=== PATIENT | female | born 1975 | race Caucasian/White ===

== ENCOUNTER 2018-10-10 11:57 | Emergency (ER) | payer OTHER ==
[~2018-10-10] VITALS: Ht 177.8 cm; Wt 74.0 kg
[2018-10-10 12:05] VITALS: Ht 177.8 cm; Wt 74.0 kg
[2018-10-10] MEDS ORDERED: CEPH-443 PO (12:54)
[2018-10-10] MEDS ORDERED: MUPI22OI2 TOP (12:54)
--- NOTE | 2018-10-10 12:57 | ERD ---
ER Documentation Chief Complaint Chief Complaint LEFT BUTTOCK BURN FROM HOT TEA X 5 DAYS AGO, BLISTER PRESENT HPI This 43-year-old female sustained a burn on her left buttock after spilling tea on herself 5 days ago. She was waiting for it to heal but it appears more red. Tetanus is up-to-date. She has minimal discharge. She denies fevers, vomiting, additional symptoms. ROS All systems reviewed and are negative except as per history of present illness. Medications Home Meds Active Scripts Mupirocin* (Bactroban*) 2% -22 Gram Oint...g., 1 APPLIC TOP BID for 7 Days, EA Prov:JV MAYER MD 10/10/18 Cephalexin* (Keflex*) 500 Mg Capsule, 500 MG PO QID for 7 Days, CAP Prov:JV MAYER MD 10/10/18 Allergies Allergies: Coded Allergies: No Known Allergy (Unverified , 10/10/18) PMhx/Soc Medical and Surgical Hx: pt denies Medical Hx, pt denies Surgical Hx Hx Alcohol Use: No Hx Substance Use: No Hx Tobacco Use: No Smoking Status: Never smoker FmHx Family History: No diabetes, No coronary disease, No other Physical Exam Vitals Vital Signs Date Temp Pulse Resp B/P (MAP) Pulse Ox O2 O2 Flow FiO2 Time Delivery Rate 10/10/18 99.0 72 16 136/69 99 12:05 (91) Physical Exam Const: No acute distress Head: Atraumatic Eyes: Normal Conjunctiva ENT: Normal External Ears, Nose and Mouth. Neck: Full range of motion. No meningismus. Resp: Clear to auscultation bilaterally Cardio: Regular rate and rhythm, no murmurs Abd: Soft, non tender, non distended. Normal bowel sounds Skin: No petechiae or rashes. There is a healing split thickness burn on the left buttock approximately 2 cm x 6 cm. There is some surrounding redness and tenderness. There is no induration, streaking, fluctuance, active discharge. Back: No midline or flank tenderness Ext: No cyanosis, or edema Neur: Awake and alert Psych: Normal Mood and Affect Results 24 hrs Current Medications Medications Dose Sig/Larry Start Time Status Last (Trade) Ordered Route PRN Stop Time Admin Dose Reason Admin Cephalexin 500 mg ONCE ONCE 10/10/18 10/10/18 (Keflex) PO 13:00 12:47 10/10/18 13:01 Procedures/MDM Patient presents with a 5-day-old split thickness burn on the left buttock with signs of early infection. Is no signs of necrotizing fasciitis, sepsis, additional complications. Will treat with Keflex, Bactroban, instructions on wound care, scar prevention, primary care follow-up and return precautions. The patient was stable with no new complaints during the ER course. Clinically, there is no current evidence to suggest meningitis, sepsis, acute abdomen, pneumonia, stroke, acute coronary syndrome, pulmonary embolism, aortic dissection or any other emergent condition appearing to require further evaluation or hospitalization. Patient counseled regarding my diagnostic impression and care plan. Prior to discharge all questions answered. Pt agrees with treatment plan and understands strict return precautions. Pt is instructed to follow up with primary care provider within 24-48 hours. Precautionary instructions provided including instructions to return to the ER if not impr oving or for any worsening or changing symptoms or concerns. Departure Diagnosis: Primary Impression: Cellulitis Site of cellulitis: unspecified site Qualified Codes: L03.90 - Cellulitis, unspecified Additional Impression: Burn injury Condition: Stable Patient Instructions: Burn, Infected, Laceration, How To Minimize Scar, Burn, Second Degree Additional Instructions: Recheck for worsening redness, fevers, new or worsening symptoms. JV MAYER MD Oct 10, 2018 12:57
[2018-10-10] MEDS ORDERED: CEPHALEXIN 500 MG CAP PO ONE (13:00)
== END 2018-10-10 13:36 | disposition home or self-care (01) ==
LOC: FTE 11:57
DX: L03.90 Cellulitis, unspecified (principal); T21.25XA Burn of second degree of buttock, initial encounter; X10.0XXA Contact with hot drinks, initial encounter; Y92.9 Unspecified place or not applicable
CPT/HCPCS: Z7502; Z7610; 99283